=== PATIENT | female | born 1990 | race African-American/Black ===

== ENCOUNTER 2017-01-18 15:15 | Observation (INO) ==
[2017-01-18] MEDS ORDERED: HYDROmorphone 2 MG/1 ML VIAL IV STA (15:47)
[2017-01-18] MEDS ORDERED: ONDANSETRON 4 MG/2 ML VIAL IV STA (15:47)
[2017-01-18] MEDS ORDERED: ONDANSETRON 4 MG/2 ML VIAL ONE (15:49)
[2017-01-18] MEDS ORDERED: HYDROmorphone 2 MG/1 ML VIAL ONE (15:50)
--- NOTE | 2017-01-18 15:53 | Emergency Department Note ---
Arrival - Arrival Stated Complaint: 10WKS PREG/MISCARRIAGE ED Nursing Triage Note: Pt arrived with complaint of abdominal cramping and vaginal bleeding. Pt was here earlier with same complaint. Pt is 10 wks . States pain is radiating from abdomen to buttocks. states pain was severe and now is 7 out of 10 on pain scale. Mode of Arrival: Wheelchair Limitations: No Limitations Source: Patient, RN Notes Reviewed - History of Present Illness HPI Narrative: Patient is a 26-year-old black female 2 para 1 who was seen earlier today with incomplete AB. Ultrasound was negative for any heart activity. Patient returns this afternoon complaining of worsening abdominal pain without marked increase in bleeding. Patient denies any chills or fever. The patient is routinely followed by nurse practitioner in the women[facility] group. Patient will be admitted to Dr. Samuel's service. Onset (ago): day(s) (3) Consistency: constant Severity: moderate Allergies/Adverse Reactions: Allergies Allergy/AdvReac Type Severity Reaction Status Date / Time Penicillins Allergy Intermediate ITCHING Verified 01/18/17 10:46 Home Medications: Home Medications Medication Instructions Recorded Confirmed Type Clindamycin Cap [Cleocin Cap] 300 mg PO Q8HR #30 capsule 01/13/17 Rx Indomethacin Cap [Indocin Cap] 25 mg PO TID #30 capsule 01/13/17 Rx Review of System - Review of System 12 point system: reviewed and no additional remarkable complaints except as stated - Review of System Constitutional: Absent: chills, fever Gastrointestinal: Present: abdominal pain. Absent: nausea, vomiting Genitourinary female: Present: other. Absent: dysuria Medical,Surgical,& Family Hx - Medical History Medical History: noncontributory - Surgical History Reproductive Surgeries: Surgical HX of;: Section (X1) Orthopedic Surgeries: Patient denies;: Total Hip Replacement - Social History Smoking Status: Never smoker Frequency of Alcohol Use: None Type of Drug Use: None Exam Vital Signs: Vital Signs Temperature 98.8 F 01/18/17 15:30 Pulse Rate 80 01/18/17 15:30 Respiratory Rate 18 01/18/17 15:30 Blood Pressure 106/66 01/18/17 15:30 O2 Sat by Pulse Oximetry 99 01/18/17 15:30 GENERAL: This is a well-nourished well-developed black female in no apparent distress. VITAL SIGNS: Reviewed LUNGS: Lungs are clear to auscultation. Chest rises symmetrically. There is no chest wall tenderness. CV: Heart is regular rate and rhythm without murmurs rubs or gallops. ABDOMEN: Abdomen is soft, nontender to palpation. There are no abdominal abnormal masses palpated. There is no organomegaly. Bowel sounds are present and active. SKIN: Skin is warm and dry. No rash. NEUROLOGIC: Awake alert and oriented 4. Cranial nerves II through XII are grossly intact. Motor is 5 over 5 in all extremities bilaterally. Course - Consultations Consultation #1: Discussed with Dr. Samuel. Patient will be admitted to his service. Initial orders written for him. He will assume care of the patient upon arrival to the [facility]. Time: 15:54 Disposition Clinical Impression: Incomplete Case discussed with: patient Disposition: Still a Patient Condition: Stable
[2017-01-18 17:03] LABS: Basophils % 0.4 % (0.0-0.8); Eosinophils # 0.1 10*3/uL (0.0-0.87); Eosinophils % 0.7 % (0.00-10.9); Hematocrit 34.7 VOL% (35.7-47.0); Hemoglobin 11.7 GM/DL (12.0-16.0); Immature Granulocytes % 0.3 %; Immature Granulocytes Absolute 0.03 #; Lymphocytes # 2.2 10*3/uL (1.4-4.0); Mean Corpuscular HGB Conc 33.7 GM/DL (32-36); Mean Corpuscular Hemoglobin 29 PG (27-34); Mean Corpuscular Volume 85.7 FL (87-102); Mean Platelet Volume 9.5 FL (9.6-12.0); Monocytes # 0.6 10*3/uL (0.11-0.8); Monocytes % 6.3 % (1.7-12.7); Neutrophils # 6.9 10*3/uL (1.4-7.4); Neutrophils % 70.3 % (38.7-73.9); Platelet Count 381 T/CUMM (130-400); Red Blood Count 4.05 MC/CUMM (3.8-5.5); Red Cell Distribution Width 13.4 % (9.3-17.3); White Blood Count 9.8 T/CUMM (4-12)
[2017-01-18] MEDS ORDERED: IBUPROFEN 800 MG TABLET PO PRN (17:23)
[2017-01-18] MEDS ORDERED: MAGNESIUM HYDROXIDE SUSP 30 ML UDCUP PO PRN (17:23)
[2017-01-18] MEDS ORDERED: ONDANSETRON 4 MG/2 ML VIAL IV PRN (17:23)
[2017-01-18] MEDS ORDERED: BISACODYL 10 MG SUPP RECTAL PRN (17:23)
[2017-01-18] MEDS ORDERED: ACETAMINOPHEN 325 MG TABLET PO PRN (17:23)
[2017-01-18] MEDS ORDERED: LACTATED RINGERS 1,000 ML IV SCH (17:23)
[2017-01-18] MEDS ORDERED: HYDROmorphone 2 MG/1 ML VIAL IV PRN (17:23)
[2017-01-18] MEDS: OXYTOCIN/LR 20 UNIT/1,000 ML BAG IV SCH (17:40)
--- NOTE | 2017-01-18 19:03 | OB/GYN History & Physical ---
History of Present Illness History of present illness: Ms. Esposito is a 26 year old female who presented to the emergency room with vaginal bleeding and an ultrasound confirming a demise early 66-1/2 week gestation, confirmed by serial ultrasounds. She is currently stopped bleeding but has not passed the products of conception. Home Medications Medication Instructions Recorded Confirmed Type Clindamycin Cap [Cleocin Cap] 300 mg PO Q8HR #30 capsule 01/13/17 01/18/17 Rx Indomethacin Cap [Indocin Cap] 25 mg PO TID #30 capsule 01/13/17 01/18/17 Rx Allergies Allergy/AdvReac Type Severity Reaction Status Date / Time Penicillins Allergy Intermediate ITCHING Verified 01/18/17 10:46 - Constitutional Constitutional: Present: as per HPI. Absent: chills, fatigue - Cardiovascular Cardiovascular: Absent: chest pain at rest - Respiratory Respiratory: Absent: cough, dyspnea, wheezing - Gastrointestinal Gastrointestinal: Present: constipation, diarrhea. Absent: abdominal pain, bloating - Genitourinary Genitourinary: Present: abnormal vaginal bleeding (currently spotting only and stable) - Musculoskeletal Musculoskeletal: Absent: back pain, muscle cramps, muscle weakness - Neurological Neurological: Absent: confusion, dizziness, numbness, syncope - Psychiatric Psychiatric: Absent: anxiety, depression - Hematologic/Lymphatic Hematologic/Lymphatic: Absent: easy bleeding, easy bruising Medical,Surgical,& Family Hx - Medical History Cardio: History of: Hypertension (hx gestational HTN with last ) - Surgical History Cardiac Surgeries: Patient Denies: Cardiac Catheterization Reproductive Surgeries: Surgical HX of;: Section (X1 6 years ago) Orthopedic Surgeries: Patient denies;: Total Hip Replacement - Social History Smoking Status: Never smoker Frequency of Alcohol Use: None Type of Drug Use: None Exam [employer] - Constitutional Vitals: Vital Signs Temp Pulse Pulse Resp BP BP Pulse Ox 01/18/17 17:40 97.2 F L 63 18 115/75 01/18/17 17:37 71 17 106/63 98 01/18/17 17:00 65 16 100/63 98 01/18/17 16:30 77 18 103/64 98 01/18/17 16:00 75 18 104/65 97 01/18/17 15:30 98.8 F 80 18 106/66 99 Pulse Ox 01/18/17 17:40 99 01/18/17 17:37 01/18/17 17:00 01/18/17 16:30 01/18/17 16:00 01/18/17 15:30 General appearance: no acute distress - Head Head exam: Present: normal inspection - Neck Neck exam: Present: normal inspection - Respiratory Respiratory exam: Present: clear to auscultation bilaterally. Absent: accessory muscle use - Cardiovascular Cardiovascular exam: Present: regular rate and rhythm - GI/Abdominal GI/Abdominal exam: Present: normal bowel sounds. Absent: distended, guarding, tenderness - Back Exam Back exam: Absent: normal inspection - Neurological Exam Neurological exam: Present: alert, oriented X3 - Psychiatric Psychiatric exam: Present: normal affect, normal mood, depressed - Skin Skin exam: Present: normal color, warm, dry Assessment and Plan (1) Incomplete Status: Acute Assessment and plan: We will run Pitocin drip during the night and is patient does not expel her demise by morning to consider a suction D&C Current Visit: Yes Results - Labs CBC & BMP: 01/18/17 16:50
[2017-01-18] MEDS: DOCUSATE SODIUM 100 MG CAPSULE PO SCH (21:24)
[2017-01-19] MEDS: OXYTOCIN/LR 20 UNIT/1,000 ML BAG IV SCH (01:48)
[2017-01-19 07:23] VITALS: BP 113/62
--- NOTE | 2017-01-19 08:28 | Ultrasound Report ---
History: Vaginal bleeding. 10 week gestation. Threatened Date: 01/19/2017 Study: Pelvic ultrasound Comparison exam: 01/18/2017 Real-time ultrasound images are captured and archived. The anteverted uterus measures 11.4 x 4.9 x 6.0 cm. The endometrial echo measures 3.5 mm thickness. There is no intrauterine gestational sac. No retained products of conception are identified. The right ovary measures 30 x 16 x 22 mm; the left measures 29 x 15 x 22 mm. The ovaries appear normal. There is no adnexal mass. There is no free fluid in the posterior cul-de-sac. Impression: Complete miscarriage by sonography. No retained products of conception are identified. The previous intrauterine gestational sac is no longer seen PROCEDURE INTERPRETED AT [facility] DEPARTMENT OF RADIOLOGY Final Report Signed by: Dr. Natividad Cadena
[2017-01-19] MEDS: DOCUSATE SODIUM 100 MG CAPSULE PO SCH (09:09)
== END 2017-01-19 10:30 | disposition home or self-care (01) ==
LOC: N.EDINP 15:15 → N.ED 15:15 → N.OB 16:56
PROVIDERS: ADMIT Obstetrics & Gynecology; ATTEND Obstetrics & Gynecology

== ENCOUNTER 2017-12-31 08:52 | Inpatient (IN) ==
[2017-12-31] MEDS ORDERED: MEPERIDINE 50 MG/1 ML VIAL IV ONE (09:24)
[2017-12-31] MEDS ORDERED: ONDANSETRON 4 MG/2 ML VIAL IV ONE (09:24)
[2017-12-31] MEDS ORDERED: LACTATED RINGERS 1,000 ML IV ONE (09:24)
[2017-12-31 09:45] LABS: Basophils % 0.3 % (0.0-0.8); Eosinophils # 0.1 10*3/uL (0.0-0.87); Eosinophils % 0.5 % (0.00-10.9); Hemoglobin 12.7 GM/DL (12.0-16.0); Immature Granulocytes % 0.5 %; Immature Granulocytes Absolute 0.06 #; Lymphocytes # 3.7 10*3/uL (1.4-4.0); Lymphocytes % 32.1 % (21.3-54.2); Mean Corpuscular HGB Conc 32.6 GM/DL (32-36); Mean Corpuscular Hemoglobin 28 PG (27-34); Mean Corpuscular Volume 86.1 FL (87-102); Mean Platelet Volume 11.4 FL (9.6-12.0); Monocytes # 1.1 10*3/uL (0.11-0.8); Monocytes % 9.5 % (1.7-12.7); Neutrophils # 6.5 10*3/uL (1.4-7.4); Neutrophils % 57.1 % (38.7-73.9); Platelet Count 360 T/CUMM (130-400); Red Blood Count 4.53 MC/CUMM (3.8-5.5); Red Cell Distribution Width 13.7 % (9.3-17.3); White Blood Count 11.5 T/CUMM (4-12)
[2017-12-31 10:05] LABS: Albumin 2.6 G/DL (3.4-5.0); Bilirubin,Total 0.4 MG/DL (0.2-1.0); Calcium 8.9 MG/DL (8.5-10.1); Osmolality,Calculated 274.5 MOS/KG (273-304); Potassium 3.8 MMOL/L (3.5-5.1); Total Protein 7.8 G/DL (6.4-8.3)
[2017-12-31] MEDS ORDERED: CITRIC ACID/SODIUM CITRATE 30 ML UDCUP PO ONE (10:08)
[2017-12-31] MEDS ORDERED: FAMOTIDINE 20 MG/2 ML VIAL IV ONE (10:08)
[2017-12-31] MEDS ORDERED: OXYTOCIN/LR 20 UNIT/1,000 ML BAG IV ONE (10:10)
[2017-12-31] MEDS ORDERED: BUPIVACAINE SPINAL 0.75% 2 ML AMP SPINAL ONE (10:10)
[2017-12-31] MEDS ORDERED: MORPHINE 10 MG/10 ML VIAL ONE (10:10)
[2017-12-31] MEDS ORDERED: CLINDAMYCIN INJ 900 MG in PREMIX 1 EACH IV ONE (10:10)
[2017-12-31] MEDS: LACTATED RINGERS 1,000 ML IV SCH ×4 (10:21→22:53)
[2017-12-31 11:01] LABS: Cord Arterial Blood HCO3 12.2 MMOL/L
[2017-12-31 11:03] LABS: Cord Venous Blood HCO3 16.6 MMOL/L
[2017-12-31] MEDS ORDERED: TISSUE ADHESIVE 1 EACH APPLICATOR TOP ONE (11:20)
[2017-12-31 11:21] LABS: Apearance,Urine CLOUDY (Clear); Bacteria,Urine Occasional /HPF (Few); Bilirubin,Urine Negative (Negative); Blood, Urine Negative (Negative); Glucose,Urine (UA) Negative (Negative); Ketones,Urine 20 mg/dL (Negative); Mucus,Urine Occasional /LPF (Occasional); Nitrite,Urine Negative (Negative); Protein,Urine 100 MG/DL; RBC,Urine 9 /HPF (0-4); Squamous Epithelial Cell,Urine Occasional /HPF (0-10); Urine Color Yellow (Yellow); Urine Specific Gravity 1.015 (1.001-1.035); Urine Urobilinogen < 2.0 EU/DL (0.2-1.0); WBC,Urine 194 /HPF (0-6)
[2017-12-31] MEDS ORDERED: IBUPROFEN 800 MG TABLET PO PRN (11:45)
[2017-12-31] MEDS ORDERED: RHO(D) IMMUNE GLOBULIN 300 MCG SYRINGE IM ONE (11:45)
[2017-12-31] MEDS ORDERED: SIMETHICONE CHEW 80 MG TABLET PO PRN (11:45)
[2017-12-31] MEDS ORDERED: ONDANSETRON 4 MG/2 ML VIAL IV PRN (11:45)
[2017-12-31 12:39] LABS: Barbiturates Screen,Urine Negative (Negative); Benzodiazepines Screen,Urine Negative (Negative); Cannabinoid Screen,Urine Positive (Negative); Opiate Screen,Urine Negative (Negative); Phencyclidine Screen,Urine Negative (Negative)
[2017-12-31] MEDS ORDERED: KETOROLAC 30 MG/1 ML VIAL IV PRN (14:01)
[2017-12-31] MEDS: ACETAMINOPHEN 500 MG TABLET PO SCH ×2 (14:15→21:35)
[2017-12-31] MEDS: CLINDAMYCIN INJ 900 MG in PREMIX 1 EACH IV SCH (17:51)
[2017-12-31] MEDS: KETOROLAC 30 MG/1 ML VIAL IV SCH (21:35)
[2017-12-31] MEDS: DOCUSATE SODIUM 100 MG CAPSULE PO SCH (22:53)
[2018-01-01] MEDS: CLINDAMYCIN INJ 900 MG in PREMIX 1 EACH IV SCH (02:00)
[2018-01-01] MEDS: ACETAMINOPHEN 500 MG TABLET PO SCH (03:23)
[2018-01-01] MEDS: KETOROLAC 30 MG/1 ML VIAL IV SCH (03:24)
[2018-01-01] MEDS: LACTATED RINGERS 1,000 ML IV SCH ×2 (03:27→05:50)
[2018-01-01 04:06] LABS: Basophils % 0.3 % (0.0-0.8); Eosinophils # 0.1 10*3/uL (0.0-0.87); Eosinophils % 0.5 % (0.00-10.9); Hematocrit 30.2 VOL% (35.7-47.0); Immature Granulocytes % 0.5 %; Immature Granulocytes Absolute 0.06 #; Lymphocytes # 3.6 10*3/uL (1.4-4.0); Lymphocytes % 27.9 % (21.3-54.2); Mean Corpuscular HGB Conc 33.1 GM/DL (32-36); Mean Corpuscular Hemoglobin 28 PG (27-34); Mean Corpuscular Volume 84.1 FL (87-102); Mean Platelet Volume 10.6 FL (9.6-12.0); Monocytes # 1.2 10*3/uL (0.11-0.8); Monocytes % 9.3 % (1.7-12.7); Neutrophils % 61.5 % (38.7-73.9); Platelet Count 271 T/CUMM (130-400); Red Blood Count 3.59 MC/CUMM (3.8-5.5); Red Cell Distribution Width 13.6 % (9.3-17.3)
[2018-01-01] MEDS: DOCUSATE SODIUM 100 MG CAPSULE PO SCH ×2 (08:52→21:16)
[2018-01-01] MEDS: MULTIVITAMIN (PRENATAL) TABLET PO SCH (08:52)
[2018-01-01 17:37] LABS: Basophils % 0.2 % (0.0-0.8); Eosinophils # 0.1 10*3/uL (0.0-0.87); Eosinophils % 0.8 % (0.00-10.9); Hematocrit 29.7 VOL% (35.7-47.0); Hemoglobin 9.6 GM/DL (12.0-16.0); Immature Granulocytes % 0.8 %; Lymphocytes # 3.1 10*3/uL (1.4-4.0); Lymphocytes % 24.9 % (21.3-54.2); Mean Corpuscular HGB Conc 32.3 GM/DL (32-36); Mean Corpuscular Hemoglobin 28 PG (27-34); Mean Corpuscular Volume 86.1 FL (87-102); Mean Platelet Volume 10.8 FL (9.6-12.0); Monocytes # 1.1 10*3/uL (0.11-0.8); Monocytes % 8.6 % (1.7-12.7); Neutrophils % 64.7 % (38.7-73.9); Platelet Count 244 T/CUMM (130-400); Red Blood Count 3.45 MC/CUMM (3.8-5.5); Red Cell Distribution Width 13.6 % (9.3-17.3); White Blood Count 12.4 T/CUMM (4-12)
[2018-01-01] MEDS: MAGNESIUM HYDROXIDE SUSP 30 ML UDCUP PO PRN ×2 (18:17→21:16)
[2018-01-01] MEDS ORDERED: BISACODYL 10 MG SUPP RECTAL PRN (21:09)
[2018-01-02 08:35] VITALS: BP 114/78
[2018-01-02] MEDS: MULTIVITAMIN (PRENATAL) TABLET PO SCH (09:00)
[2018-01-02] MEDS: DOCUSATE SODIUM 100 MG CAPSULE PO SCH (09:00)
== END 2018-01-02 13:00 | disposition home or self-care (01) | DRG 540 ==
LOC: N.LDOUT 08:52 → N.LD 08:54 → N.OB 13:59
PROVIDERS: ADMIT Obstetrics & Gynecology; ATTEND Obstetrics & Gynecology
PROC: LDCSECT (ICD-10-PCS; 2017-12-31 10:15)